=== PATIENT | male | born 2000 | race Caucasian/White ===

== ENCOUNTER 2024-06-29 12:11 | Outpatient (OUT) | payer OTHER, SELFPAY ==
--- NOTE | 2024-06-29 12:29 | XR_ITS ---
The [address] [address] Patient Name: LIZZY PERKINS MRN: [id number] date: 2000 Sex: M Assigned Patient Location: LAB Current Patient Location: Accession/Order Number: [id number] Exam Date: 06/29/2024 12:24 Report Date: 06/30/2024 09:30 At the request of: YANA SOLITARIO Procedure: XR shoulder LT min 2V PROCEDURE: XR shoulder LT min 2V COMPARISON: None. HISTORY: INTERNAL DERANGEMENT OF LEFT SHOULDER FINDINGS: BONES:No fracture, acute abnormality, or significant arthropathy. SOFT TISSUES:Negative. No visible soft tissue swelling. EFFUSION:None visible. OTHER: Negative. XR/XR shoulder LT min 2V IMPRESSION: No acute radiographic abnormality Electronically authenticated by: NICA GARDUNO Date: 06/30/2024 09:30
== END 2024-06-29 12:12 | disposition home or self-care (01) ==
LOC: LAB 12:18
PROVIDERS: PCP Family Medicine; Visit Provider Family Medicine
DX: M24.812 Other specific joint derangements of left shoulder, not elsewhere classified (principal)
CPT/HCPCS: 73030

== ENCOUNTER 2025-01-26 12:35 | Emergency (ER) | payer OTHER, SELFPAY ==
[2025-01-26 12:44] VITALS: BP 139/72; PULSE 59; TEMP 36.5; O2SAT 99; BMI 25.1
--- NOTE | 2025-01-26 12:51 | ED.GENADUL1 ---
HPI HPI - General Adult General Chief complaint: Wound/Laceration Stated complaint: right thumb laceration Time Seen by Provider: 01/26/25 12:41 Source: patient Mode of arrival: walk-in Limitations: no limitations History of Present Illness HPI narrative: 24-year-old male presents to the emergency department for laceration to the tip of his right thumb. 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 No other injury was sustained. It has been more than 10 years since he had a tetanus shot. No other injury was sustained. Related Data Allergies Allergy/AdvReac Type Severity Reaction Status Date / Time Penicillins AdvReac Intermediate Hives Verified 01/26/25 12:44 vancomycin AdvReac Intermediate Hives Verified 01/26/25 12:44 Opioid HPI Opioid Management Most Recent Opioid Data: No Data to Display Review of Systems ROS Narrative A ten point review of systems is negative except as noted above. PFSH PFSH Social History Little interest or pleasure in doing things: not at all Feeling down, depressed, or hopeless: not at all Exam Narrative Exam Narrative: Nurses note and vital signs reviewed and patient is not hypoxic. General: The patient appears well and in no apparent distress. Patient is resting comfortably on cart. Skin: Warm, dry, no pallor noted. There is no rash noted. Head: Normocephalic, atraumatic Eye: Normal conjunctiva, no drainage Ears, Nose, Mouth, and Throat: oral mucosa is moist. Nares patent. Cardiovascular: Regular Rate and Rhythm Respiratory: Patient is in no distress, no accessory muscle use Back: non-tender GI: Soft and nontender Musculoskeletal: There is a superficial laceration of the distal aspect of his right thumb finger pad. It is not gaping or bleeding. The nail and nailbed are unaffected. Neurological: A&O, normal speech Psychiatric: Cooperative Constitutional Vital Signs, click to edit/add: Last Vital Signs Temp 97.7 F 01/26/25 12:44 Pulse 59 L 01/26/25 12:44 Resp 16 01/26/25 12:44 BP 139/72 01/26/25 12:44 Pulse Ox 99 01/26/25 12:44 O2 Del Method Room Air 01/26/25 12:44 Course Vital Signs Vital signs: Vital Signs Temperature 97.7 F 01/26/25 12:44 Pulse Rate 59 L 01/26/25 12:44 Respiratory Rate 16 01/26/25 12:44 Blood Pressure 139/72 01/26/25 12:44 Pulse Oximetry 99 01/26/25 12:44 Oxygen Delivery Method Room Air 01/26/25 12:44 Temperature 97.7 F 01/26/25 12:44 Pulse Rate 59 L 01/26/25 12:44 Respiratory Rate 16 01/26/25 12:44 Blood Pressure 139/72 01/26/25 12:44 Pulse Oximetry 99 01/26/25 12:44 Oxygen Delivery Method Room Air 01/26/25 12:44 Medical Decision Making MDM Narrative Medical decision making narrative: Sutures are not indicated. Tetanus status was updated and tube gauze applied. Application checked by me and found to be appropriate, he is neurovascular intact. Treatment diagnosis and follow-up were discussed with the patient. Differential Diagnosis Differential Diagnosis: Laceration, need for tetanus immunization Discharge Plan Discharge Chief Complaint: Wound/Laceration Clinical Impression: Laceration of right thumb Patient Disposition: Home, Self-Care Time of Disposition Decision: 12:50 Condition: Good Mode of Transportation: Private Vehicle Print Language: Setswana Instructions: Finger Laceration (ED) Additional Instructions: Leave tube gauze on for 48 hours. Remove and apply bandage daily. Referrals: YANA SOLITARIO [Primary Care Provider] - 1 week
[2025-01-26] MEDS: BACITRACIN 0.9 GM PACKET 1 PACKET TOPICAL (13:07)
[2025-01-26] MEDS: ADACEL DIPH,PERTUSS(ACELL),TET VAC/PF 0.5 ML ADULT SYRINGE IM (13:08)
--- OUTSIDE RECORDS SUMMARY | 2025-01-26 13:39 | XMS_ITS | CCD ---
Author Organization [facility] Care Team Providers Care Laceworker Name Role Phone Suresh Jackson Primary Care Provider SURESH JACKSON Referring Unavailable SURESH JACKSON Primary Care Unavailable DAGO BOUDREAUX Primary Care Unavailable EYAD BAPTISTE Admitting Unavailable EYAD BAPTISTE Attending Unavailable NICA GARDUNO V Consulting Unavailable EYAD BAPTISTE Consulting Unavailable DAGO BOUDREAUX Attending Unavailable Unavailable Primary Care Provider Unavailabl e Allergies Allergy Classification Reported Allergen(s) Allergy Type Date of Onset Reaction(s) Facility (2 sources) Penicillins; Translations: [PENICILLINS] Propensity to adverse reactions to drug 9 Hives [place], [place] (4 sources) Vancomycin; Translations: [VANCOMYCIN] Drug Allergy 9 Rash, Other (See Comments) [place] (1 source) Penicillins Drug allergy (disorder) 5 [facility] (1 source) Vancomycin Drug Allergy 7 [facility] (2 sources) Penicillins Propensity to adverse reactions to drug 9 Hives, Other (See Comments) [facility] Medications Current Medications Medication Drug Class(es) Dates Sig (Normalized) Sig (Original) ondansetron 4 mg oral tablet (1 source) Serotonin-3 Receptor Antagonist Start: 07-04-2019 take 1 tablet by mouth every eight hours as needed for nausea ondansetron (ZOFRAN) 4 MG tablet Take 1 tablet by mouth every 8 hours as needed for Nausea or Vomiting 30 tablet 1 07/04/2019 Active Problems Active Problems Problem Classification Problem Date Documented Da te Episodic/Chronic Abdominal pain (1 source) Right upper quadrant pain; Translations: [RUQ pain] Episodic External cause codes: Natural/environment (1 source) Other and unspecified overexertion or strenuous movements or postures, initial encounter; Translations: [OTH AND UNS OVREXRT/STRN MVMT/POS INT] Onset: 12-19-2018 External cause codes: Unspecified (1 source) Activity, running; Translations: [ACTIVITY RUNNING] Onset: 12-19-2018 Other non-traumatic joint disorders (1 source) Other specific joint derangements of left shoulder, not elsewhere classified; Translations: [Other specific joint derangements of left shoulder, not elsewhere classified] Onset: 06-29-2024 Chronic Other non-traumatic joint disorders (2 sources) Derangement of left shoulder joint; Translations: [Other specific joint derangements of left shoulder, not elsewhere classified] 06-29-2024 Chronic Other non-traumatic joint disorders (1 source) Shoulder pain Onset: 06-29-2024 Episodic Unclassified (1 source) Annual Exam Onset: 06-29-2024 Past or Other Problems Problem Classification Problem Date Documented Da te Episodic/Chronic Mood disorders (2 sources) Mood disorders Onset: 06-29-2024 06-29-2024 Other connective tissue disease (3 sources) Pain in right lower leg; Translations: [PAIN IN RIGHT LOWER LEG] Onset: 12-15-2018 Episodic Sprains and strains (4 sources) Strain of other muscle(s) and tendon(s) at lower leg level, right leg, initial encounter; Translations: [Strain of unspecified muscle, fascia and tendon at shoulder and upper arm level, left arm, initial encounter] Onset: 12-19-2018 06-29-2024 Episodic Results Test Name Value Interpretation Reference Range Facility [facility] Albumin [Mass/Vol] 4.6 g/dL Normal 3.6-5.1 [facility] Comment on above: Performed By: #### 1 0231, 8780 #### [facility] [address], [address] [place] [id number] Tassel Maker: Adrien Quiros MD Albumin/Globulin [Mass ratio] 1.8 {ratio} Normal 1.0-2.5 [facility] Comment on above: Performed By: #### 1 0231, 9500 #### [facility] [address], [address] [place] [id number] Tassel Maker: Adrien Quiros MD ALP [Catalytic activity/Vol] 71 U/L Normal 36-130 [facility] Comment on above: Performed By: #### 1 0231, 7600 #### [facility] of [place] [address] Tassel Maker: Adrien Quiros MD ALT [Catalytic activity/Vol] 49 U/L High 9-46 [facility] Comment on above: Performed By: #### 1 0231, 7600 #### [facility] of [address], [address] [place] [address] Tassel Maker: Adrien Quiros MD AST [Catalytic activity/Vol] 22 U/L Normal 10-40 [facility] Comment on above: Performed By: #### 1 0231, 7600 #### [facility] [place] [address] Tassel Maker: Adrien Quiros MD Bilirubin [Mass/Vol] 0.5 mg/dL Normal 0.2-1.2 [facility] Comment on above: Performed By: #### 1 023, 7600 #### [facility] of [address], [address] [place] [address] Tassel Maker: Adrien Quiros MD BUN/CREATININE RATIO NOT APPLICABLE Normal 6-22 [facility] Comment on above: Performed By: #### 1 023, 7600 #### [facility] [place] [address] Tassel Maker: Adrien Quiros MD Calcium [Mass/Vol] 9.6 mg/dL Normal 8.6-10.3 [facility] Comment on above: Performed By: #### 1 0231, 7600 #### [facility] [place] [address] Tassel Maker: Adrien Quiros MD Chloride [Moles/Vol] 105 mmol/L Normal 98-110 [facility] Comment on above: Performed By: #### 1 0231, 7600 #### [facility] of [address], [address] [place] [address] Tassel Maker: Adrien Quiros MD CO2 [Moles/Vol] 25 mmol/L Normal 20-32 [facility] Comment on above: Performed By: #### 1 023, 7600 #### [facility] [place] [address] Tassel Maker: Adrien Quiros MD Creatinine [Mass/Vol] 1.07 mg/dL Normal 0.60-1.35 [facility] Comment on above: Performed By: #### 1 230, 7600 #### [facility] [place] [address] Tassel Maker: Adrien Quiros MD eGFR NON-AFR. IRANIAN 99 mL/min/1.73m2 Normal > OR = 60 [facility] Comment on above: Performed By: #### 1 230, 7600 #### [facility] [place] [address] Tassel Maker: Adrien Quiros MD GFR/1.73 sq M.predicted among blacks MDRD (S/P/Bld) [Vol rate/Area] 114 mL/min/{1.73_m2} Normal > OR = 60 [facility] Comment on above: Performed By: #### 1 230, 7600 #### [facility] [place] [address] Tassel Maker: Adrien Quiros MD Globulin (S) [Mass/Vol] 2.5 g/dL Normal 1.9-3.7 [facility] Comment on above: Performed By: #### 1 230, 7600 #### [facility] [place] [address] Tassel Maker: Adiren Quiros MD Glucose [Mass/Vol] 97 mg/dL Normal 65-99 [facility] Comment on above: Result Comment: Fasting reference interval Performed By: #### 1 023, 7600 #### [facility] [place] [address] Tassel Maker: Adrien Quiros MD Potassium [Moles/Vol] 4.2 mmol/L Normal 3.5-5.3 [facility] Comment on above: Performed By: #### 1 0231, 7600 #### [facility] [place] [address] Tassel Maker: Adrien Quiros MD Protein [Mass/Vol] 7.1 g/dL Normal 6.1-8.1 [facility] Comment on above: Performed By: #### 1 023, 7600 #### [facility] of [address], [address] [place] [address] Tassel Maker: Adrien Quiros MD Sodium [Moles/Vol] 140 mmol/L Normal 135-146 [facility] Comment on above: Performed By: #### 1 023, 7600 #### [facility] [place] [address] Tassel Maker: Adrien Quiros MD Urea nitrogen [Mass/Vol] 14 mg/dL Normal 7-25 [facility] Comment on above: Performed By: #### 1 023, 7600 #### [facility] [place] [address] Tassel Maker: Adrien Quiros MD LIPID PANEL, [facility] [place] -3 Cholesterol [Mass/Vol] 184 mg/dL Normal <200 [facility] Comment on above: Order Comment: FASTI NG:UNKNOWN FASTING: UNKNOWN Performed By: #### 1 023, 7600 #### [facility] [place] [address] Tassel Maker: Adrien Quiros MD Cholesterol in HDL [Mass/Vol] 36 mg/dL Low > OR = 40 [facility] Comment on above: Order Comment: FASTI NG:UNKNOWN FASTING: UNKNOWN Performed By: #### 1 0231, 7600 #### [facility] [place] [address] Tassel Maker: Adrien Quiros MD Cholesterol in LDL [Mass/Vol] 125 mg/dL High [facility] Comment on above: Order Comment: FASTI NG:UNKNOWN FASTING: UNKNOWN Result Comment: Refe rence range: <100 Desirable range <100 mg/dL for primary prevention; <70 mg/dL for patients with CHD or diabetic patients with > or = 2 CHD risk factors. LDL-C is now calculated using the Brittny calculation, which is a validated novel method providing better accuracy than the Friedewald equation in the estimation of LDL-C. Sergio ANGELES et al. SHANE. 2013;310(19): 3988-7274 (http://education.[employer].Dimeres/faq/BER373) Performed By: #### 1 0231, 7600 #### [facility] [address], [address] [place] [address] Tassel Maker: Adrien Quiros MD Cholesterol.total/C holesterol in HDL [Mass ratio] 5.1 {ratio} High <5.0 [facility] Comment on above: Order Comment: FASTI NG:UNKNOWN FASTING: UNKNOWN Performed By: #### 1 023, 0 #### [facility] [address], [address] [place] [address] Tassel Maker: Adrien Quiros MD NON HDL CHOLESTEROL 148 mg/dL (calc) High <130 [facility] Comment on above: Order Comment: FASTI NG:UNKNOWN FASTING: UNKNOWN Result Comment: For patients with diabetes plus 1 major ASCVD risk factor, treating to a non-HDL-C goal of <100 mg/dL (LDL-C of <70 mg/dL) is considered a therapeutic option. Performed By: #### 1 023, 7600 #### [facility] [address], [address] [place] [address] Tassel Maker: Adrien Quiros MD Triglyceride [Mass/Vol] 115 mg/dL Normal <150 [facility] Comment on above: Order Comment: FASTI NG:UNKNOWN FASTING: UNKNOWN Performed By: #### 1 023, 7600 #### [facility] [address], [address] [place] [address] Tassel Maker: Adrien Quiros MD US GALLBLADDER RUQon 26-2 019 US GALLBLADDER RUQ Patient 6 : 2000 Age: 19 years Gender: Male Order Date: 07/06/2019 12:08 PM EXAM: US GALLBLADDER RUQ NUMBER OF IMAGES: 22 images INDICATION: R10.11 RUQ pain; other COMPARISON: None FINDINGS: Sonographic examination of the right upper quadrant of the abdomen was performed, with attention to the gallbladder. The gallbladder is normal in size, without internal echoes or thickening of the gallbladder wall. There is no pericholecystic fluid. There was a negative Jefferson's sign. A small portion of the common bile duct was demonstrated, measuring up to 3 mm in diameter. The visualized adjacent liver shows no focal lesion or intrahepatic biliary dilatation. The visualized pancreas shows no enlargement or mass lesion. There is no apparent free fluid. IMPRESSION: Normal ultrasound study of the gallbladder. Interpreted by: Enrique Lomax MD Signed by: Enrique Lomax MD 07/06/19 Final result Normal [facility] Normal ultrasound study of the gallbladder. [place], [place] Patient 6 : 2000 Age: 19 years Gender: Male Order Date: 07/06/2019 12:08 PM EXAM: US GALLBLADDER RUQ NUMBER OF IMAGES: 22 images INDICATION: R10.11 RUQ pain; other COMPARISON: None FINDINGS: Sonographic examination of the right upper quadrant of the abdomen was performed, with attention to the gallbladder. The gallbladder is normal in size, without internal echoes or thickening of the gallbladder wall. There is no pericholecystic fluid. There was a negative Jefferson's sign. A small portion of the common bile duct was demonstrated, measuring up to 3 mm in diameter. The visualized adjacent liver shows no focal lesion or intrahepatic biliary dilatation. The visualized pancreas shows no enlargement or mass lesion. There is no apparent free fluid. [place], [place], y Incoming Radiant Results From [employer] - 07/06/2019 2:12 PM EDT Patient : 2000 Age: 19 years Gender: Male Order Date: 07/06/2019 12:08 PM EXAM: US GALLBLADDER RUQ NUMBER OF IMAGES: 22 images INDICATION: R10.11 RUQ pain; other COMPARISON: None FINDINGS: Sonographic examination of the right upper quadrant of the abdomen was performed, with attention to the gallbladder. The gallbladder is normal in size, without internal echoes or thickening of the gallbladder wall. There is no pericholecystic fluid. There was a negative Jefferson's sign. A small portion of the common bile duct was demonstrated, measuring up to 3 mm in diameter. The visualized adjacent liver shows no focal lesion or intrahepatic biliary dilatation. The visualized pancreas shows no enlargement or mass lesion. There is no apparent free fluid. IMPRESSION: Normal ultrasound study of the gallbladder. [facility], [place] US ABHIJEET DOP LEG RTon 12-16-19 US ABHIJEET DOP LEG RT [address] [place] [address] Patient: LIZZY PRIETO Exam Date: 12/15/2018 : 2000 Gender:M Ordering : DR EYAD BAPTISTE . Admission #: [id number] Family : DR DAGO BOUDREAUX Order #: [id number] CLICK HERE TO VIEW EXAM RADIOLOGY REPORT PROCEDURE: ULTRASOUND VENOUS DOPPLER LEG RIGHT COMPARISON: None. INDICATIONS: Acute pain of right calf without injury TECHNIQUE: Lower extremity samayoa scale and Duplex Doppler evaluation of the deep venous system from the inguinal ligament through the calf veins. FINDINGS: REGION: Right lower extremity. THROMBI: None. COMPRESSIBILITY: Normal compressibility. FLOW: Normal waveform and antegrade flow between 5 and 20 cm/s. *Exam performed in accordance with [facility]UM practice guidelines- Peripheral venous ultrasound, January 04, 2010. CONCLUSION: 1. No deep venous thrombus in the right leg Dictated by: Nica Garduno M.D. on 12/15/2018 at 13:35 Approved by: Nica Garduno M.D. on 12/15/2018 at 13:36 Normal [facility] Vital Signs Date Time Vital Sign Value Performing Clinician Facility 06-29-2024 11:040 Body height 180.3 cm [employer] Phone: [facility] [employer] [facility] 06-29-2024 11:19-040 Body mass index (BMI) [Ratio] 30.88 kg/m2 [employer] Work Phone: [facility] 06-29-2024 11:19040 Body temperature 98.01 [degF] Dago Furlong DO Work Phone: [facility] [employer] [facility] 06-29-2024 11:19-0400 Body weight 100.43 kg Dago Boudreaux DO Work Phone: [facility] [employer] 06-29-2024 11:19-0400 Diastolic blood pressure 70 mm[Hg] Dago Boudreaux DO Work Phone: [facility] 06-29-2024 11:19-0400 Heart rate 75 /min Dago Boudreaux DO Work Phone: [facility] 06-29-2024 11:19-0400 SaO2% (BldA) [Mass fraction] 97 % Dago Boudreaux DO Work Phone: [facility] 06-29-2024 11:19-0400 Systolic blood pressure 112 mm[Hg] Dago Boudreaux DO Work Phone: [facility] Encounters Encounter Date Encounter Type Care Provider Facility Start: 07-03-2024 End: 07-03-2024 Orders Only Dago Boudreaux DO Work Phone: [facility] Comment on above: Internal derangement of left shoulder (Primary Dx); Strain of left shoulder, initial encounter Start: 06-29-2024 End: 06-29-2024 Patient encounter status Dago Boudreaux DO Work Phone: [facility] Work Phone: Start: 06-29-2024 End: 06-29-2024 Periodic preventive med est patient 18-39 yrs Dago Boudreaux DO Work Phone: [facility] Comment on above: Well adult health ch lily (Primary Dx); Strain of left shoulder, initial encounter; Internal derangement of left shoulder Start: 06-29-2024 End: 06-29-2024 ambulatory [facility] Start: 06-29-2024 Encounter for genera l adult medical examination without abnormal findings [facility] Start: 07-06-2019 End: 07-09-2019 Patient encounter procedure SURESH JACKSON [facility] Start: 07-06-2019 End: 07-08-2019 Subsequent hospital visit by physician Gerard Rosebnaum Rm 1 [facility] Ultrasound Comment on above: RUQ pain Start: 12-15-2018 End: 12-15-2018 Patient encounter procedure DAGO BOUDREAUX Facility:H1 Procedures Date Procedure Procedure Detail Performing Clinician Start: 06-29-2024 Adult depression screening assessment Dago Boudreaux DO Work Phone: Start: 07-06-2019 Us abdominal real ti me w/image limited SURESH JACKSON Start: 07-06-2019 Us abdominal real ti me w/image limited Suresh Jackson Work Phone: Plan of Treatment Date Care Activity Detail Author Start: 06-29-2025 Adult BMI Screening Adult BMI Screen ing [facility] Start: 06-29-2025 Depression Screening Depression Scre [facility] Start: 06-29-2025 Tobacco Screening Tobacco Screening [facility] Start: 07-03-2024 End: 07-03-2025 MR Shoulder - left WO contrast MR shoulder left without contrast Imaging Routine Internal derangement of left shoulder Strain of left shoulder, initial encounter Expected: 07/03/2024, Expires: 07/03/2025 [facility] Work Phone: Comment on above: Expected: 07/03/2024 , Expires: 07/03/2025 Start: 06-29-2024 End: 06-29-2025 XR Shoulder - left 2 Views X-ray shoulder left minimum 2 views Imaging Routine Internal derangement of left shoulder Expected: 06/29/2024, Expires: 06/29/2025 [employer] Work Phone: Comment on above: Expected: 06/29/2024 , Expires: 06/29/2025 Start: 06-11-2024 COVID-19 Vaccine () COVID-19 Vaccine () [facility] Start: 09-01-2024 Influenza vaccination Influenza Vacc ine [facility] Start: 07-29-2021 DTaP,Tdap and Td Vaccines (7 - Td or Tdap) DTaP,Tdap and Td Vaccines (7 - Td or Tdap) [facility] Start: 07-29-2021 DTaP/Tdap/Td vaccine (7 - Tdap) DTaP/Tdap/Td vaccine (7 - Tdap) [place], [place] Start: 06-11-2019 Influenza vaccination Flu vaccine (# 1) [place], [place] Start: 2018 Adult BMI Follow Up Plan Adult BMI Follow Up Plan [facility] Start: 2015 HIV screen HIV screen [place], [place] Immunizations Immunization Date Immunization Notes Care Provider [facility] 08-21-2019 influenza virus vaccine, unspecified formulation Dago Boudreaux DO Work Phone: [facility] Payers Date Payer Category Payer Unknown [employer] [facility] [id number] 2023-Present [phone] [address] [address] [place] [address] [id number] 2023 Unknown [id number] 2018 Unknown [employer] xxxxxxxxxxxx 2018-Present [address] [place] [address] xxxxxxxxxxxx [id number] 2000 Unknown [id number] 2000 Unknown [id number] 2000 Unknown [id number] 1959 Unknown [id number] 1959 Unknown [id number] Social History Date Type Detail Facility Start: 07-04-2019 End: 06-29-2024 Tobacco smoking status NHIS Never smoker [place] Start: 07-04-2019 End: 06-29-2024 Alcohol intake Never [place] Start: 07-04-2019 History SDOH Alcohol Frequency 1 [place] Start: 2000 Sex Assigned At Not on file [place] Start: 06-29-2024 Tobacco use and exposure Smokeless tobacco non-user [facility] Start: 06-29-2024 Alcoholic beverage intake Current drinker of alcohol (finding) [facility] Start: 06-29-2024 History of Social function [facility] Has the [employer], or [email or web address] threatened to shut off services in your home in past 12Mo No [facility] Do you belong to any clubs or organizations such as jain groups, unions, fraternal or athletic groups, or school groups? Yes [facility] Are you now , , , , never or living with a partner? Never [facility] How often to you hav e a drink containing alcohol? Monthly or less [facility] How many standard dr inks containing alcohol do you have on a typical day? 1 or 2 [facility] How often do you hav e 6 or more drinks on 1 occasion? Never [facility] How hard is it for y ou to pay for the very basics like food, housing, medical care, and heating Not hard at all [facility] Do you feel stress - tense, restless, nervous, or anxious, or unable to sleep at night because your mind is troubled all the time - these days [OSQ] Not at all [facility] Start: 06-29-2024 Alcohol Comment occassional [facility] Progress note 06-29-2024 Significant Event - Dago Boudreaux DO - 06/29/2024 11:49 AM EDT Note Date & Type Note Facility 06-29-2024 Progress note Formatting of t his note might be different from the original. Not dating anyone at this time [facility] Note 06-29-2024 Significant Event - Dago Boudreaux DO - 06/29/2024 11:49 AM EDT Note Date & Type Note Facility 06-29-2024 Miscellaneous Notes Formattin g of this note might be different from the original. Not dating anyone at this time documented in this encounter [facility] History of Present illness Narrative 06-29-2024 Dago Boudreaux DO - 06/29/2024 11:15 AM EDT Note Date & Type Note Facility 06-29-2024 History of Present illness Narrative Images from the original note were not included. Subjective Patient ID: Lizzy Prieto is a 24 y.o. male. Lizzy presents for a wellness exam. He works for the [employer]. He is fairly healthy. He does have a problem though. He hurt his left shoulder while doing a bench press last week. He has been taking ibuprofen and icing it. There is no pain at rest but then it hurts when he is doing something. It is more in the front of the shoulder. When he was doing bench press he had a sudden onset of pain and weakness. He dropped that side of the bench press and his jumpbasting facing baster caught it. His jumpbasting facing baster said he heard a pop . He did have some red dots on his shoulder after it happened but they have since resolved. He has pain when his arm is in abduction. He can raise it over his head but he does start to have pain. He does not have any neck pain. There is no numbness or tingling in his arm. Annual Exam Associated symptoms include arthralgias. Shoulder Pain The following portions of the patient's history were reviewed and updated as appropriate: allergies, current medications, past family history, past medical history, past social history, past surgical history, problem list, and medication reconciliation was completed including current medication and post discharge medication. Review of Systems Constitutional: Negative. HENT: Negative. Eyes: Negative. Respiratory: Negative. Cardiovascular: Negative. Gastrointestinal: Negative. Endocrine: Negative. Genitourinary: Negative. Musculoskeletal: Positive for arthralgias. Skin: Negative. Neurological: Negative. Hematological: Negative. Psychiatric/Behavioral: Negative. Objective Physical Exam Constitutional: General: He is not in acute distress. Appearance: He is obese. HENT: Head: Normocephalic. Right Ear: External ear normal. Left Ear: External ear normal. Eyes: General: No scleral icterus. Extraocular Movements: Extraocular movements intact. Conjunctiva/sclera: Conjunctivae normal. Cardiovascular: Rate and Rhythm: Normal rate and regular rhythm. Pulses: Normal pulses. Heart sounds: Normal heart sounds. No murmur heard. Pulmonary: Effort: Pulmonary effort is normal. No respiratory distress. Breath sounds: Normal breath sounds. No wheezing, rhonchi or rales. Abdominal: General: Bowel sounds are normal. There is no distension. Palpations: Abdomen is soft. There is no mass. Tenderness: There is no abdominal tenderness. Hernia: No hernia is present. Musculoskeletal: Left shoulder: Swelling and tenderness present. No deformity, effusion, laceration or crepitus. Normal range of motion. Decreased strength. Normal pulse. Arms: Cervical back: Normal and neck supple. No tenderness. Thoracic back: Normal. Comments: Pain with empty can but able to resist; slightly positive speeds test but negative Yerguson's test; +liftoff test; negative Neer's and Darion Finch test Lymphadenopathy: Cervical: No cervical adenopathy. Skin: General: Skin is warm and dry. Neurological: General: No focal deficit present. Mental Status: He is alert and oriented to person, place, and time. Psychiatric: Mood and Affect: Mood normal. Behavior: Behavior normal. Thought Content: Thought content normal. Judgment: Judgment normal. Assessment/Plan Lizzy was seen today for annual exam and shoulder pain. Diagnoses and all orders for this visit: Well adult health check Health maintenance discussed. He defers labs. Vaccines encouraged. Strain of left shoulder, initial encounter Check x-ray of shoulder. At minimum he has a strain. Ice rest and nonsteroidal anti-inflammatories discussed. He will continue with [id number] analgesics. Internal derangement of left shoulder - X-ray shoulder left minimum 2 views; Future Some physical exam findings consistent with internal derangement. Will check an x-ray and then try to get an MRI done. documented in this encounter [facility] Evaluation note Note Date & Type Note Facility Evaluation note Diagnosis Well adult health check- Primary Unspecified general medical examination Strain of left shoulder, initial encounter Internal derangement of left shoulder documented in this encounter [facility] Evaluation note Note Date & Type Note Facility Evaluation note Diagnosis Internal derangement of left shoulder- Primary Strain of left shoulder, initial encounter documented in this encounter [facility] Instructions Note Date & Type Note Facility Instructions Not on filedocumented in this en counter [facility] Instructions Note Date & Type Note Facility Instructions Not on filedocumented in this en counter [facility] Reason for Referral Status Reason Specialty Diagnoses / Procedures Referre d By Contact Referred To Contact [facility]iology Diagnoses RUQ pain Procedures US Gallbladder Ruq Suresh Jackson MD [address] [place] [address] Specialty Diagnoses / Procedures Referred By Contac t Referred To Contact Diagnoses Internal derangement of left shoulder Strain of left shoulder, initial encounter Procedures MR shoulder left without contrast Dago Boudreaux, DO [address] [facility], [place] [address] Referral ID Status Reason Start Date Expiration Date V isits Requested Visits Authorized [id number] Pending Review 07/03/2024 07/03/2025 1 1 Assessments Diagnosis RUQ pain Abdominal pain, right upper quadrant Advance Directives Documents on File Type Date Recorded Patient Philosophy Lecturer Expl anation Advance Directives and Living Will Power of Undertaker Assistant Summary Purpose Family History No Family History Records FoundNo Family History Records FoundNo Family History Records FoundNo Family History Records Found Additional Source Comments Reason for Visit (unrecogniz ed section and content) Status Reason Specialty Diagnoses / Procedures Referre d By Contact Referred To Contact [facility]iology Diagnoses RUQ pain Procedures US Gallbladder Ruq Suresh Jackson MD [address] [place] [address] Reason Comments Annual Exam Shoulder Pain Lt. Pain scale at 2 when not using it. 7 or 8 when using it. (unrecognized sect ion and content) No Status Records FoundNo Status Records FoundNo Status Records FoundNo Status Records Found INFORMATION SOURCE (unrecogn ized section and content) DATE CREATED AUTHOR 07/09/2019 [facility] DATE CREATED AUTHOR AUTHOR'S ORGANIZ ATION 08/14/2019 [facility] DATE CREATED AUTHOR AUTHOR'S ORGANIZ ATION 02/09/2022 [facility] DATE CREATED AUTHOR AUTHOR'S ORGANIZ ATION 07/01/2024 [facility] FOR RECORDS PERTAINING TO PATIENTS WHO ARE OR HAVE BEEN ENROLLED IN A CHEMICAL DEPENDENCY/SUBSTANCEABUSE PROGRAM, SOME INFORMATION MAY BE OMITTED. This clinical summary was aggregated from multiple sources. Caution should be exercised in using it in the provision of clinical care. This summary normalizes information from multiple sources, and as a consequence, information in this document may materially change the coding, format and clinical context of patient data. In addition, data may be omitted in some cases. CLINICAL DECISIONS SHOULD BE BASED ON THE PRIMARY CLINICAL RECORDS. [facility] [employer] [facility]. provides no warranty or guarantee of the accuracy or completeness of information in this document.
== END 2025-01-26 13:19 | disposition home or self-care (01) ==
LOC: ER 13:18
PROVIDERS: Emergency Provider Emergency Medicine; PCP Family Medicine
DX: S61.011A Laceration without foreign body of right thumb without damage to nail, initial encounter (principal); W26.8XXA Contact with other sharp object(s), not elsewhere classified, initial encounter; Z23 Encounter for immunization
CPT/HCPCS: 90471; 90715; 99284